=== PATIENT | female | born 1935 | race Two or more races ===

== ENCOUNTER 2020-05-08 00:53 | Emergency (ER) | payer OTHER ==
[~2020-05-08] VITALS: Ht 152.4 cm; Wt 75.3 kg
[2020-05-08] MEDS ORDERED: ATACAND32 MG (01:12)
[2020-05-08] MEDS ORDERED: GLIPIZIDE XL2.5 MG (01:12)
[2020-05-08] MEDS ORDERED: HYDROCHLOROTHIA25 MG (01:13)
[2020-05-08] MEDS ORDERED: TOPROL XL50 M1 (01:14)
[2020-05-08] MEDS ORDERED: DOLOGESIC 500-1 EACH PO (03:07)
== END 2020-05-08 03:24 | disposition home or self-care (01) ==
LOC: ER 00:53
DX: G44.209 Tension-type headache, unspecified, not intractable (principal)